=== PATIENT | male | born 1965 | race Caucasian/White ===

== ENCOUNTER 2019-12-10 16:04 | Emergency (ER) | payer BC ==
[~2019-12-10] VITALS: Ht 167.6 cm; Wt 163.3 kg
[2019-12-10] MEDS ORDERED: NORVASC 2.5 MG2.5 M1 PO (16:24)
[2019-12-10] MEDS ORDERED: TRIAMTERENE/HCT1 CA1 PO (16:24)
[2019-12-10] MEDS ORDERED: INTERMEZZO3.5 MG PO (16:25)
[2019-12-10] MEDS ORDERED: PAROXETINE CR25 MG PO (16:25)
[2019-12-10] MEDS ORDERED: MELOXICAM15 MG PO (16:25)
[2019-12-10] MEDS ORDERED: ALPRAZOLAM XR3 MG PO (16:26)
[2019-12-10] MEDS ORDERED: TYLENOL WITH CO1 TA1 PO (18:49)
[2019-12-10 19:50] VITALS: BP 136/84
== END 2019-12-10 19:50 | disposition home or self-care (01) ==
LOC: M.ERS 16:04
DX: M25.561 Pain in right knee (principal); I10 Essential (primary) hypertension

== ENCOUNTER 2021-06-03 06:12 | Inpatient (IN) | payer OTHER ==
[~2021-06-03] VITALS: Ht 167.6 cm; Wt 146.5 kg
[2021-06-03] VITALS (10 sets, daily range): BP systolic 106–143; BP diastolic 47–99
[~2021-06-03 06:12] MED LIST: ALPRAZOLAM XR3 MG PO; INTERMEZZO3.5 MG PO; MELOXICAM15 MG PO; NORVASC 2.5 MG2.5 M1 PO; PAROXETINE CR25 MG PO; TRIAMTERENE/HCT1 CA1 PO; TYLENOL WITH CO1 TA1 PO
[2021-06-03 07:13] LABS: ABSOLUTE BASOPHILS 0.1 thou/uL (0.0-0.2); ABSOLUTE EOSINOPHILS 0.1 thou/uL (0.0-0.7); ABSOLUTE MONOCYTES 0.6 thou/uL (0.0-1.2); ABSOLUTE NEUTROPHILS 7.8 thou/uL (1.6-8.1); BASOPHILS 0.8 %; EOSINOPHILS 1.3 %; HEMATOCRIT 39.1 % (42.0-52.0); LYMPHOCYTES 10.2 %; MCH 29.1 pg (26.0-34.0); MCHC 33.2 g/dL (28.0-37.0); MCV 87.5 fL (80.0-100.0); MONOCYTES 6.3 %; MPV 6.4 fl. (7.2-11.1); NUCLEATED RBCS 0 /100WBC; PLATELET COUNT* 236 thou/uL (150-400); POLYS 81.4 %; RBC 4.47 mil/uL (4.50-6.00); RDW-CV 16.1 % (10.5-14.5); WBC 9.6 thou/uL (4.0-11.0)
[2021-06-03 07:19] LABS: CALCIUM 8.6 mg/dL (8.5-10.1); CREATININE 1.3 mg/dL (0.6-1.3); POTASSIUM 4.3 mmol/L (3.5-5.1)
[2021-06-03 07:30] LABS: ALBUMIN 3.3 g/dL (3.4-5.0); TOTAL BILIRUBIN 0.7 mg/dL (<0.1-1.0); TOTAL PROTEIN 7.1 g/dL (6.4-8.2)
--- NOTE | 2021-06-03 15:20 | NUR ---
PATIENT SHORTNESS OF BREATH INCREASING WITH ACTIVITY. CALLED DR. TINSLEY REGARDING OXYGEN SATURATION OF 86 AFTER PATIENT GOING TO THE BATHROOM. HEART RATE IS HIGH AT 125 AND PATIENT IS SWEATING WITH DYSPNIA. BP HOLDING AT 118/79. BIPAP ORDERED FOR PATIENT TO HELP WITH BREATHING. PATIENT GIVEN CALL LIGHT AND REMINDED NOT TO GET UP WITHOUT ANY ASSISTANCE.
--- NOTE | 2021-06-03 15:59 | 2DMMODE ---
[place] [address] 2 D/M-MODE ECHOCARDIOGRAM Name: MATTHEW CABALLERO Room: [place] [address] ADM IN .[place].#: [id number] Admission: 06/03/21 Attend Phys: Sj Navarrete Discharge: Date of : 63 Date of Service: 06/03/21 1558 Report #: [id number] THIS REPORT FOR: cc: Angel Carl MD, Stanley P. MD Blick, David R. MD [facility] ~ APPROVED REPORT Study performed: 06/03/2021 13:26:53 EXAM: Comprehensive 2D, Doppler, and color-flow Echocardiogram Patient Location: In-Patient Room #: ER Status: routine BSA: 2.50 HR: 88 bpm BP: 121/58 mmHg Rhythm: NSR Other Information Study Quality: Good Indications Pulmonary Embolism 2D Dimensions IVSd: 11.66 (7-11mm) LVOT Diam: 30.56 (18-24mm) LVDd: 34.77 mm PWd: 10.64 (7-11mm) Ascending Ao: 29.55 (22-36mm) LVDs: 20.92 (25-40mm) Volumes Left Atrial Volume (Systole) LA ESV Index: 14.00 mL/m2 Aortic Valve AoV Peak Camron.: 2.13 m/s AO Peak Gr.: 18.09 mmHg LVOT Max P.14 mmHg AO Mean Gr.: 8.62 mmHg LVOT Mean P.13 mmHg LVOT Max V: 1.24 m/s AO V2 VTI: 25.08 cm LVOT Mean V: 0.82 m/s MAYE (VTI): 4.80 cm2 LVOT V1 VTI: 16.42 [place] [address] 2 D/M-MODE ECHOCARDIOGRAM Name: MATTHEW CABALLERO Room: [address] IN ..#: [id number] Admission: 06/03/21 Attend Phys: Sj Navarrete Discharge: Date of : 63 Date of Service: 06/03/21 1558 Report #: [id number] E/A Ratio: 0.74 MV Decel. Time: 302.50 ms MV E Max Camron.: 0.76 m/s MV PHT: 87.73 ms MVA (PHT): 2.51 cm2 TDI E/Medial E': 8.44 Medial E' Camron.: 0.09 m/s Pulmonary Valve PV Peak Camron.: 1.17 m/s PV Peak Gr.: 5.51 mmHg Tricuspid Valve RAP Estimate: 5.00 mmHg TR Peak Gr.: 63.50 mmHg RVSP: 68.00 mmHg PA Pressure: 68.00 mmHg Left Ventricle The left ventricle is normal size. There is normal LV segmental wall motion. There is normal left ventricular wall thickness. Left ventricular systolic function is normal. The left ventricular ejection fraction is within the normal range. LVEF is 60-65%. Grade I - abnormal relaxation pattern. Right Ventricle Right ventricle is dilated. Right ventricle is moderately hypokinetic. Atria The left atrium size is normal. Right atrium is dilated. Aortic Valve The aortic valve is normal in structure. No aortic regurgitation is present. There is no aortic valvular stenosis. Mitral Valve The mitral valve is normal in structure. There is no mitral valve regurgitation noted. No evidence of mitral valve stenosis. Tricuspid Valve The tricuspid valve is normal in structure. Mild tricuspid regurgitation. estimated pa pressure 60 mm Hg Pulmonic Valve The pulmonary valve is normal in structure. [place] [address] 2 D/M-MODE ECHOCARDIOGRAM Name: MATTHEW CABALLERO Jason Room: [address]#: [id number] Admission: 06/03/21 Attend Phys: Sj Navarrete Discharge: Date of : 63 Date of Service: 06/03/21 1558 Report #: [id number] valvular regurgitation. Great Vessels The aortic root is normal in size. IVC is normal in size and collapses >50% with inspiration. Pericardium There is no pericardial effusion. <Conclusion> LVEF is 60-65%. Right ventricle is dilated. Right ventricle is moderately hypokinetic. Mild tricuspid regurgitation. estimated pa pressure 60 mm Hg <ELECTRONICALLY SIGNED> By: Orlando Talley MD, [facility] 06/03/21 1558 1558 1558 Orlando Talley MD, FAC /INF
[2021-06-04 00:30] VITALS: BP 107/65
[2021-06-04 00:32] LABS: MCH 29.2 pg (26.0-34.0); MCV 88.5 fL (80.0-100.0); MPV 6.6 fl. (7.2-11.1); RBC 3.73 mil/uL (4.50-6.00); RDW-CV 16.1 % (10.5-14.5); WBC 12.7 thou/uL (4.0-11.0)
[2021-06-04 00:34] LABS: HEMOGLOBIN 10.9 gm/dL (14.0-18.0)
[2021-06-04 00:39] LABS: CALCIUM 7.9 mg/dL (8.5-10.1); CREATININE 1.2 mg/dL (0.6-1.3); POTASSIUM 4.4 mmol/L (3.5-5.1)
--- NOTE | 2021-06-04 03:46 | NUR ---
PT ARRIVED TO UNIT AT 2110. RECEIVED REPORT AT BEDSIDE. PT ON HEPARIN DRIP, RIGHT GROIN DRESSING CLEAN,DRY, INTACT. NO HEMATOMA PRESENT. PT DENIES PAIN. TREASURY ACCOUNTANT IN PLACE, TRACING SR. VSS. BEDREST UNTIL 0900 PER WRITTEN ORDERS IN CHART.
[2021-06-04 04:00] VITALS: BP 111/61
[2021-06-04 08:00] VITALS: BP 106/66
[2021-06-04 12:00] VITALS: BP 120/60
--- NOTE | 2021-06-04 12:38 | NUR ---
Rapid covid negative, PCR ordered, now under advanced precautions. Pt normally resides at home alone. Independent, but has been fairly sedentary the past few weeks. No DME. No hx of HH or SNF. Pt does not wear home o2, currently on 2L. Pt on heparin gtt, plan to switch to po. Therapy orders placed. CM to following for dc needs.
[2021-06-04 13:43] LABS: ABSOLUTE BASOPHILS 0.1 thou/uL (0.0-0.2); ABSOLUTE EOSINOPHILS 0.4 thou/uL (0.0-0.7); ABSOLUTE LYMPHOCYTES 1.6 thou/uL (0.8-5.3); ABSOLUTE MONOCYTES 0.6 thou/uL (0.0-1.2); ABSOLUTE NEUTROPHILS 7.7 thou/uL (1.6-8.1); BASOPHILS 0.8 %; EOSINOPHILS 3.9 %; HEMATOCRIT 33.7 % (42.0-52.0); HEMOGLOBIN 10.8 gm/dL (14.0-18.0); LYMPHOCYTES 15.6 %; MCH 29.7 pg (26.0-34.0); MCHC 32.1 g/dL (28.0-37.0); MCV 92.7 fL (80.0-100.0); MONOCYTES 5.6 %; MPV 6.7 fl. (7.2-11.1); NUCLEATED RBCS 0 /100WBC; PLATELET COUNT* 212 thou/uL (150-400); POLYS 74.1 %; RBC 3.64 mil/uL (4.50-6.00); RDW-CV 17.1 % (10.5-14.5); WBC 10.3 thou/uL (4.0-11.0)
[2021-06-04 14:06] LABS: ALBUMIN 2.8 g/dL (3.4-5.0); CALCIUM 7.9 mg/dL (8.5-10.1); POTASSIUM 3.9 mmol/L (3.5-5.1); TOTAL BILIRUBIN 0.5 mg/dL (<0.1-1.0); TOTAL PROTEIN 5.8 g/dL (6.4-8.2)
[2021-06-04 16:00] VITALS: BP 131/75
--- NOTE | 2021-06-04 19:00 | NUR ---
ASSUMED PT CARE AT 0730, PT AOX4 BUT FORGETFUL. PT ASKED TO CALL OUT WHEN IV BEEPS SINCE HE IS ON A HEPARIN DRIP AND IN ISO FOR COVID RULEOUT SO DOOR HAS TO BE SHUT AND IT'S HARD TO HEAR PUMP BEEPING FROM OUTSIDE OF THE ROOM BUT PT WOULDN'T CALL OUT WHEN PUMP WENT OFF BUT WOULD TELL ME THAT IT HAD BEEN BEEPING FOR A WHILE WHEN I'D GO IN THERE. PT CONTINUED TO BE EDUCATED ON IMPORTANCE OF NOTIFYING NURSING STAFF WHEN PUMP BEEPS. PT UP HERI, WORKED W/ PT AND CLOT FOUND IN RT [place], DR NOTIFIED AND NO NEW ORDERS. RT GROIN SITE DROM PROCEDURE C/D/I. PT GOAL IS TO WORK W/ NURSING STAFF IN KEEPING HEPARIN DRIP GOING CONTINUOUSLY.
[2021-06-05 03:06] LABS: HEMOGLOBIN 9.1 gm/dL (14.0-18.0); MCH 29.6 pg (26.0-34.0); MCHC 33.8 g/dL (28.0-37.0); MPV 6.8 fl. (7.2-11.1); RBC 3.09 mil/uL (4.50-6.00); RDW-CV 16.5 % (10.5-14.5); WBC 11.2 thou/uL (4.0-11.0)
[2021-06-05 03:08] LABS: MCV 87.6 fL (80.0-100.0)
[2021-06-05 03:25] LABS: CALCIUM 8.2 mg/dL (8.5-10.1); CREATININE 1.2 mg/dL (0.6-1.3); POTASSIUM 3.9 mmol/L (3.5-5.1)
[2021-06-05 04:00] VITALS: BP 136/77
[2021-06-05 08:00] VITALS: BP 140/77
[2021-06-05 12:36] VITALS: BP 113/62
--- NOTE | 2021-06-05 14:13 | NUR ---
PUI. Therapy evals ordered. Pt now has clot in leg. Consult IR, Pt may need an ivc filter. No weekend dc planned.
[2021-06-05 16:06] VITALS: BP 137/76
[2021-06-05 20:00] VITALS: BP 97/64
[2021-06-06 00:16] VITALS: BP 108/53
[2021-06-06 03:59] VITALS: BP 100/60
[2021-06-06 08:00] VITALS: BP 123/81
[2021-06-06 12:00] VITALS: BP 120/51
--- NOTE | 2021-06-06 15:56 | NUR ---
THIS BUSINESS OFFICE ASSOCIATE IS IN AGREEMENT WITH DOCUMENTED EVAL BY JAD CHING FOR THIS DAY. JEFFERSON ORTIZT
[2021-06-06 16:00] VITALS: BP 122/57
[2021-06-06 20:00] VITALS: BP 140/73
[2021-06-07 00:41] VITALS: BP 118/59
[2021-06-07 04:07] VITALS: BP 127/73
[2021-06-07 05:25] LABS: HEMATOCRIT 27.6 % (42.0-52.0); HEMOGLOBIN 9.4 gm/dL (14.0-18.0); MCH 29.9 pg (26.0-34.0); MCHC 34.1 g/dL (28.0-37.0); MCV 87.8 fL (80.0-100.0); MPV 6.9 fl. (7.2-11.1); RBC 3.14 mil/uL (4.50-6.00); WBC 12.5 thou/uL (4.0-11.0)
[2021-06-07 05:59] LABS: CALCIUM 8.6 mg/dL (8.5-10.1); CREATININE 1.1 mg/dL (0.6-1.3); POTASSIUM 3.8 mmol/L (3.5-5.1)
[2021-06-07 08:00] VITALS: BP 114/47
[2021-06-07 12:00] VITALS: BP 133/68
[2021-06-07] MEDS ORDERED: XARELTO15 MG PO (12:41)
[2021-06-07] MEDS ORDERED: LEVOFLOXACIN500 MG PO (13:06)
[2021-06-07 16:00] VITALS: BP 140/75
[2021-06-07 16:45] VITALS: BP 133/68
== END 2021-06-07 18:45 | disposition home or self-care (01) | DRG 163 ==
LOC: M.ERS 06:12 → M.2W 10:27 → M.TBA-ER 10:27 → M.2W 21:23
PROVIDERS: Emergency Medicine; Internal Medicine; Radiology Diagnostic Radiology; ADMIT Internal Medicine; ATTEND Internal Medicine
PROC: 02CQ3ZZ Extirpation of Matter from Right Pulmonary Artery, Percutaneous Approach (ICD-10-PCS; principal; 2021-06-03)
PROC: 02CR3ZZ Extirpation of Matter from Left Pulmonary Artery, Percutaneous Approach (ICD-10-PCS; principal; 2021-06-03)
PROC: 02CP3ZZ Extirpation of Matter from Pulmonary Trunk, Percutaneous Approach (ICD-10-PCS; principal; 2021-06-03)
DX: I26.92 Saddle embolus of pulmonary artery without acute cor pulmonale (principal); J96.01 Acute respiratory failure with hypoxia; Z68.43 Body mass index [BMI] 50.0-59.9, adult; R71.0 Precipitous drop in hematocrit; I82.431 Acute embolism and thrombosis of right popliteal vein; F32.9 Major depressive disorder, single episode, unspecified; I10 Essential (primary) hypertension; E66.01 Morbid (severe) obesity due to excess calories; Z20.822 Contact with and (suspected) exposure to COVID-19; Z79.899 Other long term (current) drug therapy